=== PATIENT | female | born 1940 | race Caucasian/White ===

== ENCOUNTER 2016-11-30 10:48 | Outpatient (CLI) | payer MEDICARE, OTHER ==
[~2016-11-30] VITALS: Ht 160 cm; Wt 76.4 kg
--- NOTE | ~2016-11-30 | HEMODYNAMI ---
PATIENT:JACQUELINE CONDE MEDICAL RECORD: [id number] : 44 LOCATION:[facility] ADMISSION DATE: 11/30/16 Generatedon:11/30/201613:26 Patient name: JACQUELINE CONDE Patient #: [id number] SS N: : 1940 Date of study: 11/30/2016 Page: Of Hemodynamic Procedure Report Patient Data Patient Demographics Procedure consent was obtained First Name: JACQUELINE Gender: Female Last Name: AMAYA : 1940 [facility] Initial: T Age: 76 year(s) Patient #: [id number] Race: Additional ID: [id number] Contact details Address: [place] [address] State: [place] City: [place] Zip code: [address] Past Medical History Allergies: No known allergies Admission Admission Data Admission Date: 11/30/2016 Admission Time: 10:48 Lab Results Lab Result Date: 11/30/2016 Lab Result Time: 0:00 Biochemistry Name Units Result Min Max BUN mg/dl 22 --(----)-* 7 18 Creatinine mg/dl 0.7 --(*---)-- 0.6 1.3 CBC Name Units Result Min Max Hemoglobin g/dl 15.5 --(-*--)-- 13.5 17.5 Procedure Procedure Types Cath Procedure Diagnostic Procedure C [facility] w/Coronaries Miscellaneous Procedures Moderate Sedation up to 15 minutes Procedure Description Procedure Date Procedure Date: 11/30/2016 Procedure Start Time: 13:13 Procedure End Time: 13:23 Procedure Staff Name Function Ulices Vilchis MD Performing Physician Elayne Peng RT Scrub Rose Sanchez RN Nurse Alpa Joseph RT Monitor Procedure Data Cath Procedure Fluoroscopy Diagnostic fluoroscopy Total fluoroscopy Time: 1.9 time: 1.9 min min Diagnostic fluoroscopy Total fluoroscopy dose: 232 dose: 232 mGy mGy Contrast Material Contrast Material Type Amount (ml) Isovue 300 41 Entry Location Entry Primary Successful Side Size Upsize Upsize Entry Closure Lopez ccessful Closure Location (Fr) 1 (Fr) 2 (Fr) Remarks Device Remarks Femoral Right 6 Fr Mechanical TR Band artery Short Compression Estimated blood loss: 10 ml Diagnostic catheters Device Type Used For End Catheter Placement Diagnostic Terumo 5Fr Procedure Tarkio 110cm catheter Procedure Complications No complications Procedure Medications Medication Administration Route Dosage Oxygen NC 2 l/min Lidocaine 2% added to field 20 Heparin Flush Bag added to field 2 bags (1000units/500ml NS) 0.9% NaCl I.V. 100 ml/hr Versed I.V. 1 mg Fentanyl I.V. 50 mcg Radial Cocktail I.A. 1 syringe (Verapomil 2mg/Nitro 400mcg/Heparin 1500units) Versed I.V. 1 mg Fentanyl I.V. 50 mcg Versed I.V. 0.5 mg Fentanyl I.V. 25 mcg Hemodynamics Rest HGB: 15.5 (g/dl) Heart Rate: 71 (bpm) Pressure Samples Time Site Value (mmHg) Purpose Heart Use Rate(bpm) 13:17 LV 120/42,16 Snapshot 84 13:18 LV 103/57,16 Snapshot 36 13:18 AO 132/77(103) Pullback 81 Gradients Valve Time Site Site 2 Mean SEP/DFP Peak To Heart Use 1 (mmHg) (sec/min) Peak Rate (mmHg) (bpm) Aortic 13:18 LV AO 81 132/77(103) Snapshots Pre Cath Intra NCS Post Cath Vital Signs Time Heart Resp SPO2 NIBP Rhythm Pain Sedation Rate (ipm) (%) (mmHg) Status Level (bpm) 12:56:09 67 15 98 138/68(93) NSR 0 (11) 10(A) , No pain 13:00:25 66 14 99 125/71(96) NSR 0 (11) 10(A) , No pain 13:04:41 62 16 98 125/64(91) NSR 0 (11) 10(A) , No pain 13:08:53 72 15 98 116/67(94) NSR 0 (11) 10(A) , No pain 13:13:05 64 16 98 127/66(84) NSR 0 (11) 9(A) , No pain 13:17:15 79 19 95 112/72(82) NSR 0 (11) 9(A) , No pain 13:21:29 75 16 97 111/53(73) NSR 0 (11) 10(A) , No pain Medications Time Medication Route Dose Verified Delivered Reason Notes Effectiveness by by 13:02:10 Oxygen NC 2 l/min Ulices Rose used for [facility] Freddy Sanchez RN procedure MD 13:02:18 Lidocaine 2% added 20ml Ulices Elena for local to vial [facility] anesthetic field MD COMER 13:02:23 Heparin Flush added 2 bags Ulices Elena used for Bag to [facility] procedure (1000units/500ml field MD COMER NS) 13:02:32 0.9% NaCl I.V. 100 Ulices Rose Per ml/hr [facility] Freddy Sanchez RN physician 13:10:08 Versed I.V. 1 mg Ulices Rose for sedation [facility] Freddy Sanchez RN, MD 13:10:14 Fentanyl I.V. 50 mcg Ulices Rose for sedation [facility] Freddy Sanchez RN, MD 13:14:54 Radial Cocktail I.A. 1 Ulices Elena for (Verapomil syringe [facility] vasodilation 2mg/Nitro MD COMER 400mcg/Heparin 1500units) 13:14:59 Versed I.V. 1 mg Ulices Rose for sedation [facility] Freddy Sanchez RN, MD 13:15:03 Fentanyl I.V. 50 mcg Ulices Rose for sedation [facility] Freddy Sanchez RN, MD 13:19:26 Versed I.V. 0.5 mg Ulices Rose for sedation [facility] Freddy Sanchez RN, MD 13:19:31 Fentanyl I.V. 25 mcg Ulices Rose for sedation [facility]. Freddy Sanchez RN, MD Procedure Log Time Note 12:40:58 Rose Sanchez RN sent for patient. Start room use. 12:40:59 Time tracking: Regular hours 12:41:03 Plan of Care:Hemodynamics will remain stable., Cardiac rhythm will remain stable., Comfort level will be maintained., Respiratory function will remain adequate., Patient/ family verbilizes understanding of procedure., Procedure tolerated without complication., Recovers from procedure without complications.. 12:47:15 Patient received from Pre/Post Procedure Room to [facility] 2 Alert and oriented. Tansferred to table in Supine position. 12:47:16 Warm blankets applied, and riky hugger turned on for patient comfort. 12:47:16 Correct patient and procedure confirmed by team. 12:47:17 Signed procedure consent form obtained from patient. 12:47:18 ECG and BP/O2 sat monitors applied to patient. 12:47:19 Full Disclosure recording started 12:55:02 Vital chart was started 12:58:42 Baseline sample Acquired. 12:58:48 Rhythm: sinus rhythm 12:59:21 H&P Date Dictated: 11/10/2016 Within 30 days and on chart., H&P Addendum completed by physician on day of procedure. (MUST COMPLETE FOR ALL OUTPATIENTS). 12:59:22 Pre-procedure instructions explained to patient. 12:59:24 Family in waiting room. 12:59:26 Patient NPO since Midnight. 12:59:35 Patient allergic to No known allergies 12:59:56 Was the patient premedicated? No 12:59:58 Is patient on blood thinner?No 13:00:11 Patient diabetic? No. 13:00:16 Snore? Yes 13:00:17 Sleep apnea? No 13:00:26 Dentures? Yes OUT 13:00:48 Patient pain scale 0/10 ?. 13:01:02 IV patent on arrival in left forearm with 0.9% NaCl at [facility]. 13:01:34 Right Radial & Right Groin area was prepped with chlora-prep and draped in sterile fashion 13:01:36 Alarms reviewed by R. N. 13:01:37 Sharps counted by scrub and verified by R.N. 13:01:38 Physician paged 13:02:10 Oxygen 2 l/min NC was administered by Rose Sanchez RN; used for procedure; 13:02:18 Lidocaine 2% 20ml vial added to field was administered by Ulices Vilchis MD; for local anesthetic; 13:02:23 Heparin Flush Bag (1000units/500ml NS) 2 bags added to field was administered by Ulices Vilchis MD; used for procedure; 13:02:32 0.9% NaCl 100 ml/hr I.V. was administered by Rose Sanchez RN; Per physician; 13:05:32 Lab results completed and on chart. 13:05:56 Lab Result : BUN 22 mg/dl 13:05:56 Lab Result : Hemoglobin 15.5 g/dl 13:05:56 Lab Result : Creatinine 0.7 mg/dl 13:08:19 Zero performed for pressure channel P1 13:09:42 Physician arrived 13::58 --------ALL STOP TIME OUT------ 13::59 Final Timeout: patient, procedure, and site verified with staff and physician. All members of the team are in agreement. 13:10:01 Right Radial & Right Groin site verified by team. 13:10:06 Sedation plan: IV Moderate Sedation Versed, Fentanyl 13:10:08 Versed 1 mg I.V. was administered by Rose Sanchez RN; for sedation; 13:10:11 Physical assessment completed. ASA score P 2 - A patient with mild systemic disease as per Ulices Vilchis MD. 13:10:14 Fentanyl 50 mcg I.V. was administered by Rose Sanchez RN; for sedation; 13:13:16 Procedure started. 13:13:29 Use device set Radial Dx 13:13:37 Local anesthetic to right radial artery with Lidocaine 2% by Ulcies Vilchis MD.INITIAL ACCESS ONLY 13:13:43 Acist Syringe opened to sterile field. 13:13:44 Medline Cath Pack opened to sterile field. 13:13:44 Bag Decanter opened to sterile field. 13:13:45 Terumo 6Fr Slender Glidesheath opened to sterile field. 13:13:45 St Jose Alfredo 260cm J .035 wire opened to sterile field. 13:13:45 Acist Hand Control opened to sterile field. 13:13:46 Acist Manifold opened to sterile field. 13:13:57 A 6 Fr Short sheath was inserted into the Right Femoral artery 13:14:49 A Diagnostic Terumo 5Fr Tarkio 110cm catheter was advanced over the wire and used for Procedure. 13:14:54 Radial Cocktail (Verapomil 2mg/Nitro 400mcg/Heparin 1500units) 1 syringe I.A. was administered by Ulices Vilchis MD; for vasodilation; 13:14:59 Versed 1 mg I.V. was administered by Rose Sanchez RN; for sedation; 13:15:01 LV angiography performed. 13:15:03 Fentanyl 50 mcg I.V. was administered by Rose Sanchez RN; for sedation; 13:16:47 Terumo Super Stiff Angled 260cm glide wire opened to sterile field. 13:17:36 glide wire exchanged and used to access valve 13:18:42 EF : 55 % 13:19:00 LCA angiography performed. 13:19: Versed 0.5 mg I.V. was administered by Rose Sanchez RN; for sedation; 13:19:31 Fentanyl 25 mcg I.V. was administered by Rose Sanchez RN; for sedation; 13:19:47 RCA angiography performed. 13:20:16 Terumo TR Band Standard opened to sterile field. 13:20:24 Catheter removed. 13:20:46 Sheath removed intact; hemostasis achieved with Mechanical Compression to the Right Femoral artery. 13:21:00 Procedure ended.(Physican Out) 13:21:17 Fluoroscopy time 01.90 minutes. 13:21:23 Fluoroscopy dose: 232 mGy 13:21:23 Flurop Dose total: 232 13:21:28 Contrast amount:Isovue 300 41ml. 13:21:30 Sharps counted by scrub and verified by R.N. 13:21:36 TR band inflated with 10cc of air. 13:21:53 Insertion/operative site no bleeding no hematoma. 13:22:04 Post-op/insertion site Right Radial artery dressed using a 4 x 4 and Tegaderm. 13:22:07 Post Procedure Pulses reassessed and unchanged 13:22:14 Post-procedure physical assessment completed. ASA score P 2 - A patient with mild systemic disease as per Ulices Vilchis MD. 13:22:18 Post procedure rhythm: unchanged. 13:22:24 Estimated blood loss: 10 ml 13:22:26 Post procedure instruction explained to patient.Patient verbalizes understanding. 13:22:29 Patient needs reinforcement of post procedure teaching. 13:22:37 Procedure type changed to Cath procedure, Diagnostic procedure, LHC, LHC w/Coronaries, Miscellaneous Procedures, Moderate Sedation up to 15 minutes 13:22:38 Procedure and supply charges have been captured, reviewed, submitted and are correct. 13:23:03 Procedure Complication : No complications 13:23:05 Vital chart was stopped 13:23:09 See physician's report for complete and final results. 13:23:16 Report given to Pre/Post Procedure Room. 13:23:19 Patient transfered to Pre/Post Procedure Room with Stretcher. 13:23:21 Procedure ended. 13:23:21 Full Disclosure recording stopped 13:23:25 End room use (Document Last) Device Usage Item Name Manufacture Quantity Catalog Hospital Part Current Minimal Lot# / Number Charge Number Stock Stock Serial# Code Acist Acist 1 [id number] [id number] [id number] [id number] 20 Syringe [employer] Medline Cardinal 1 [id number] 177465 82701 124839 5 Cath Pack Health Bag Microtek 1 2002S [id number] 57549 480537 5 [employer] Terumo 6Fr Terumo 1 [id number] 514922 437598 [address] [facility] Alfredo 1 355808 294399 380906 543343 30 260cm J .035 wire Acist Hand Acist 1 13080 945118 564611 568337 5 Control [employer] Acist Acist 1 85459 892108 262920 984991 5 Manifold [employer] Diagnostic Terumo 1 [id number] 602966 452771 961533 5 Terumo 5Fr Tarkio 110cm catheter Terumo Terumo 1 [id number] 246227 083392 598786 5 Super Stiff Angled 260cm glide wire Terumo TR Terumo 1 [id number] 516507 974600 908393 40 Band Standard Signature Audit [place] Stage Time Signature Unsigned Intra-Procedure 11/30/2016 Alpa Joseph 1:26:13 PM RT(R) Signatures Monitor : Alpa Joseph Signature : RT Date : Time : [facility] [address] [facility] [place] [address]
--- NOTE | ~2016-11-30 | OP ---
PATIENT NAME: JACQUELINE CONDE MEDICAL RECORD: [id number] :44 LOCATION:D.CAT ADMISSION DATE: SURGEON: JEREMI CARDENAS MD OPERATION DATE: 11/30/16 PROCEDURES: Left heart catheterization. Selective coronary angiography. PROCEDURE IN DETAIL: After informed consent was obtained and after detailed explanation of risks, benefits, as well as alternative therapies, the patient elected to proceed with angiogram. The right radial area was prepped and draped in a normal sterile fashion. The right radial artery was cannulated via modified Seldinger technique with placement o f 6-Arabic sheath. All catheters exchanged through this sheath. Catheters include a radial sheath Mesa catheter. The procedure was well-tolerated, and the patient was returned to the soares after the sheath was removed and TR band was placed. FINDINGS: Left ventriculography was performed in standard 30 degree NEVAREZ view, normal wall motion, normal systolic function. CORONARY ANATOMY: LEFT MAIN: The left main was free of disease. LEFT ANTERIOR DESCENDING: The left anterior descending is free of disease. Area of previous stenting is widely patent with no progression of major disease. The diagonal system is free of disease as well. CIRCUMFLEX: This is a codominant system. The circumflex is free of disease. RIGHT CORONARY ARTERY: Again, codominant system. The right coronary artery is free of disease. IMPRESSION: Widely patent stent. Normal left ventricular systolic function. No progression of major disease. JEREMI CARDENAS MD CC: [id number] DICTATION DATE: 11/30/16 1200 DIESEL ELECTRICIAN: DM 11/30/16 1849 DEP CLI 11/30/16 [facility] [address] [place] [address]
[2016-11-30] MEDS ORDERED: CRESTOR40 MG PO (11:19)
[2016-11-30] MEDS ORDERED: ESTRACE 0.5 MG0.5 MG PO (11:20)
[2016-11-30] MEDS ORDERED: TENORMIN25 MG (11:20)
[2016-11-30] MEDS ORDERED: TIROSINT50 MCG PO (11:21)
[2016-11-30] MEDS ORDERED: DIOVAN160 MG PO (11:21)
[2016-11-30] MEDS ORDERED: XANAX XR0.5 MG PO (11:21)
[2016-11-30 11:24] VITALS: BP 151/73; Ht 160 cm; Wt 76.4 kg
[2016-11-30 11:43] LABS: BASOPHILS 0.5 % (0-2); EOSINOPHILS 2.8 % (0-7); HEMATOCRIT 46.8 % (36.0-48.0); HEMOGLOBIN 15.5 g/dL (12-16); LYMPHOCYTES 33.3 % (15-50); MCH 30.5 pg (26.0-34.0); MCHC 33.1 g/dL (31.0-37.0); MCV 92.1 fL (80.0-100.0); MEAN PLATELET VOLUME 11.2 fL (7.4-10.4); NEUTROPHILS 50.4 % (40-80); PLATELET COUNT 198 10x3/uL (130-400); RBC 5.08 10x6/uL (4.00-5.40); RDW 13.5 % (11.5-14.5); WBC 6.2 10x3/uL (4.8-10.8)
[2016-11-30 11:54] LABS: CALC OSMOLALITY 283 mosm/kg (275-300); CALCIUM 9.2 mg/dL (8.5-10.1); CARBON DIOXIDE 24.9 mmol/L (21.0-32.0); CHLORIDE - SERUM 106 mmol/L (98-107); CREATININE - SERUM 0.7 mg/dL (0.6-1.3); GLUCOSE 99 mg/dL (74-106); POTASSIUM - SERUM 5.2 mmol/L (3.5-5.1); SODIUM 141 mmol/L (136-145); UREA NITROGEN 22 mg/dL (7-18); eGFR NON AFRICAN AMERICAN 87 mL/min (90-120)
--- NOTE | 2016-11-30 13:51 | NUR ---
1345 SITTING UP, ROOM AIR WITH NO RESP. DISTRESS. SBRADY RATE 52 W NO C/O CHEST PAIN. PULSES PALP X 4. R WRIST TR BAND C/D/I WITH NO HEMATOMA OR BLEEDING. AT BEDSIDE. VELASQUEZ AT BEDSIDE TO DISCUSS CATH FINDINGS WITH PATIENT AND .
--- NOTE | 2016-11-30 14:14 | NUR ---
DROWSY BUT AROUSES EASILY, TR BAND TO RIGHT WRIST CDI, DENIES NEEDS
--- NOTE | 2016-11-30 15:30 | NUR ---
WRITTEN AND VERBAL D'C INSTRUCTIONS GIVEN TO PT AND . UNDERSTOOD
== END 2016-11-30 15:45 | disposition home or self-care (01) ==
LOC: D.CATH 10:48
PROVIDERS: Internal Medicine Interventional Cardiology
DX: I25.10 Atherosclerotic heart disease of native coronary artery without angina pectoris (principal); Z95.5 Presence of coronary angioplasty implant and graft; Z01.812 Encounter for preprocedural laboratory examination